=== PATIENT | male | born 1985 | race Caucasian/White ===

== ENCOUNTER 2016-10-17 20:08 | Inpatient (IN) | payer OTHER ==
[~2016-10-17] VITALS: Ht 167.6 cm; Wt 69.6 kg
--- NOTE | 2016-10-17 20:12 | NUR ---
PT BIB [facility] WITH C/O SOB.ACCORDING TO PARAMEDICS PT USED INHALER BUT STILL FEELS A LITTLE SOB.PT HAS PAIN IN LT ARM AND LEG BUT IT IS CHRONIC.ABLE TO SPEAK IN FULL SENTENCES, PT IS ITALIAN SPEAKING. PT CAME IN WITH IV TO LEFT AC 20G. PT IS ALERT, ORIENTED X 3, PT STATES HE IS ON A LIST FOR HEART TRANSPLANT. PT STATES HE IS ON BLOOD THINNERS BUT HE STATES HE HASNT TAKEN MEDS IN 2 DAYS DUE TO HE RAN OUT OF HIS MEDICATION.... MD AT BEDSIDE...
[2016-10-17] MEDS ORDERED: WARF1TAB2 (20:30)
[2016-10-17] MEDS ORDERED: ASPIRIN 325 MG TABLET PO ONE (20:30)
[2016-10-17] MEDS ORDERED: NITROGLYCERIN 0.4 MG/TAB BOTTLE SL ONE ×2 (20:30→20:32)
[2016-10-17] MEDS ORDERED: ASPIRIN 325 MG TABLET ONE (20:32)
[2016-10-17 20:41] LABS: BASOPHILS # (AUTO) 0.1 K/uL (0.0-8.0); BASOPHILS % (AUTO) 0.8 % (0.0-2.0); EOSINOPHILS % (AUTO) 0.3 % (0.0-7.0); HEMATOCRIT 44.3 % (40-50); HEMOGLOBIN 14.7 G/DL (14.0-18.0); LYMPHOCYTES % (AUTO) 42.6 % (20.5-51.5); MEAN CORPUSCULAR HEMOGLOBIN 29.5 UUG (27.0-31.0); MEAN CORPUSCULAR HGB CONC 33 g/dL (32.0-37.0); MEAN CORPUSCULAR VOLUME 88.5 FL (82.0-92.0); MONOCYTES # (AUTO) 0.7 K/UL (0.1-1.30); MONOCYTES % (AUTO) 7.4 % (0.0-11.0); NEUTROPHILS # (AUTO) 4.5 K/UL (1.8-8.9); NEUTROPHILS % (AUTO) 48.9 % (38.5-71.5); PLATELET COUNT (AUTO) 255 K/UL (150-450); WHITE BLOOD COUNT (AUTO) 9.3 K/UL (4.0-11.2)
[2016-10-17 20:52] LABS: CREATININE 1.3 mg/dL (0.6-1.3); POTASSIUM 3.5 mmol/L (3.5-5.1)
[2016-10-17 21:05] LABS: BILIRUBIN,DIRECT 0.1 mg/dL (0.0-0.2); BILIRUBIN,TOTAL 0.3 mg/dL (0.2-1.0); TOTAL PROTEIN, SERUM 7.7 g/dL (6.4-8.2)
[2016-10-17] MEDS ORDERED: ENOXAPARIN SODIUM 60 MG/0.6 ML DISP.SYRIN SQ ONE ×2 (21:15→21:21)
[2016-10-17] MEDS ORDERED: IV NORMAL SALINE 1000 ML BAG IV ONE (21:15)
--- NOTE | 2016-10-17 21:45 | NUR ---
RA PLACED IV LEAKING DURING CTA PROCEDURE, PROCEDURE STOPPED, NEW IV PLACED, RIGHT FA 18G, CT TO REPEAT SCAN...
[2016-10-17] MEDS ORDERED: NORMAL SALINE FLUSH 10 ML DISP.SYRIN ONE ×3 (21:51→22:14)
[2016-10-17] MEDS ORDERED: IOHEXOL 350 100 ML INFUS..BTL ONE ×2 (21:51→22:12)
[2016-10-17] MEDS ORDERED: IV NORMAL SALINE 250 ML IV ONE (21:51)
--- NOTE | 2016-10-17 22:30 | NUR ---
pt apparently has different alias, different name of Augie Partida provided...
[2016-10-18 00:39] LABS: *AMPHETAMINE, URINE NEGATIVE (NEGATIVE); *BARBITURATE, URINE NEGATIVE (NEGATIVE); *CANNABINOID, URINE NEGATIVE (NEGATIVE); *COCCAINE, URINE NEGATIVE (NEGATIVE); *OPIATE, URINE NEGATIVE (NEGATIVE); *PHENCYCLIDINE SCREEN,URINE NEGATIVE (NEGATIVE)
--- NOTE | 2016-10-18 01:03 | NUR ---
Called placed to [facility], waiting home economics extension worker back.
--- NOTE | 2016-10-18 01:23 | NUR ---
Called for bed, patient will be admitted to 219.
--- NOTE | 2016-10-18 02:49 | NUR ---
RECEIVED PATIENT FROM ED VIA GURNEY. GF AT BEDSIDE. NO ACUTE DISTRESS NOTED. PATIENT WAS PUT ON 3L O2 NC. USHERED TO ROOM. SAFETY INITIATED. TELE LEADS APPLIED. TELE SR AT 65. PATIENT IS ALERT AND ORIENTED X'S 3 BUT SOMETIME FORGETFUL. ABLE TO MAKE NEEDS KNOWN. BODY ASSESSMENT DONE. BELONGINGS LISTS COMPLETED. ADMITTING PROCEDURE FOLLOWED. CALL LIGHT WITHIN REACH. WILL REVIEW ORDERS AND WILL GIVE MEDS ORDERED. WILL CONTINUE TO MONITOR.
--- NOTE | 2016-10-18 02:52 | NUR ---
Pt. admitted to TELEMETRY , under care of Dr. Ji ARMENTA,Belongs List completed, pt is alert, oriented x 3, no resp distress noted or reported upon transfer assessment...
[2016-10-18 04:19] VITALS: BP 105/67
[2016-10-18] MEDS ORDERED: IV NS 1000 ML 1,000 ML IV PRN (04:49)
[2016-10-18] MEDS ORDERED: ONDANSETRON 4 MG/2 ML VIAL IV PRN (05:00)
[2016-10-18] MEDS ORDERED: ZOLPIDEM 5 MG TABLET PO PRN (05:00)
[2016-10-18] MEDS ORDERED: Z GUARD REMEDY PASTE 57 GM TUBE TOP PRN (05:00)
[2016-10-18] MEDS ORDERED: ACETAMINOPHEN 325 MG TABLET PO PRN (05:00)
[2016-10-18] MEDS ORDERED: ENOXAPARIN SODIUM 40 MG/0.4 ML DISP.SYRIN SQ SCH ×2 (05:00→21:00)
[2016-10-18] MEDS ORDERED: MORPHINE SULFATE 2 MG/1 ML DISP.SYRIN IV PRN (05:00)
[2016-10-18 05:35] LABS: BASOPHILS % (AUTO) 0.3 % (0.0-2.0); EOSINOPHILS # (AUTO) 0.1 K/uL (0.0-0.7); EOSINOPHILS % (AUTO) 1.5 % (0.0-7.0); HEMATOCRIT 44.1 % (40-50); HEMOGLOBIN 14.6 G/DL (14.0-18.0); LYMPHOCYTES # (AUTO) 2.5 K/UL (0.8-4.8); LYMPHOCYTES % (AUTO) 37.3 % (20.5-51.5); MEAN CORPUSCULAR HEMOGLOBIN 29.8 UUG (27.0-31.0); MEAN CORPUSCULAR HGB CONC 33 g/dL (32.0-37.0); MEAN CORPUSCULAR VOLUME 90.1 FL (82.0-92.0); MONOCYTES # (AUTO) 0.5 K/UL (0.1-1.30); MONOCYTES % (AUTO) 7.2 % (0.0-11.0); NEUTROPHILS # (AUTO) 3.7 K/UL (1.8-8.9); NEUTROPHILS % (AUTO) 53.7 % (38.5-71.5); PLATELET COUNT (AUTO) 242 K/UL (150-450); RED BLOOD CELL COUNT(AUTO) 4.89 MIL/UL (4.7-6.1); WHITE BLOOD COUNT (AUTO) 6.8 K/UL (4.0-11.2)
[2016-10-18 05:45] LABS: BILIRUBIN,TOTAL 0.2 mg/dL (0.2-1.0); MAGNESIUM 1.9 mg/dL (1.8-2.4); PHOSPHOROUS 5.7 mg/dL (2.5-4.9); TOTAL PROTEIN, SERUM 7.3 g/dL (6.4-8.2)
[2016-10-18] MEDS ORDERED: ACETAMINOPHEN 325 MG TABLET ONE (05:48)
[2016-10-18] MEDS ORDERED: ENOXAPARIN SODIUM 40 MG/0.4 ML DISP.SYRIN SQ ONE (05:48)
--- NOTE | 2016-10-18 07:29 | NUR ---
SAFETY AND COMFORT MAINTAINED T/O SHIFT. NO ACUTE DISTRESS NOTED. PATIENT IS ON O2 3L NC. TELE NSR AT 65. CALL LIGHT WITHIN REACH. ALL MEDS GIVEN ORDERED. ALL NEEDS MET.
--- NOTE | 2016-10-18 08:15 | NUR ---
RECEIVED PATIENT IN BED AWAKE ALERT AND ORIENTED DENIES PAIN OR DISCOMFORTS AT THIS TIME.REMAIN ON IVF ORDERED AND TELEMETRY IN PROGRESS ORDERED.DUE MEDICATIONS GIVEN AND TOLERATED WELL NOT IN DISTRESS AT THIS TIME.
[2016-10-18] MEDS ORDERED: ASPIRIN EC 81 MG TABLET.DR PO SCH (09:00)
[2016-10-18 12:00] VITALS: BP 111/70
--- NOTE | 2016-10-18 13:41 | NUR ---
RESTING ION BED WITH HIS SIGNIFICANT OTHER AT HIS BEDSIDE WITH NO SHORTNESS OF BREATH AT THIS TIME IVF REMAINS IN PROGRESS ORDERED.
--- NOTE | 2016-10-18 14:30 | NUR ---
PATIENT COMPLAINING OF PAIN ON THE IV SITE ON HIS LEFT FOREARM CHECKED WITH NO REDNESS OR SWELLING SO REMOVED AND RESTARTED TO HIS LEFT FOREARM WITH GAUGE 20 AND IVF CONTINUED ORDERED.NOT IN DISTRESS AT THIS TIME.
[2016-10-18 16:00] VITALS: BP 104/57
[2016-10-18] MEDS ORDERED: ATOR20TA PO (16:06)
[2016-10-18] MEDS ORDERED: ACET325T53 PO (16:06)
--- NOTE | 2016-10-18 16:24 | NUR ---
NEW ORDER NOTED TO DISCHARGE PATIENT HOME TODAY NOTED AWAITING FOR DR LEWIS TO COMPLETE THE DISCHARGE PAPERS.PATIENT AND HIS SPOUSE BRUNO AT THE BEDSIDE AWARE AND SHE STATED THAT WHEN THE PAPAER WORK IS COMPLETED THEN SHE WILL TAKE HIM HOME VIA A [facility].PATIENT IS CURRENTLY ON O2 SO TURNED OFF AND WILL RECHECK THE O2 LEVEL IN ABOUT 30 MINUTES.PATIENT INSTRUCTED THAT UNTIL I RETURN TO CHECK HIS O2 SAT IF HE FEELS SHORT OF BREATH TO CALL ME RIGHT AWAY AND HE AND HIS SPOUSE EXPRESSED UNDERSTANDING.
[2016-10-18] MEDS ORDERED: FOLI1TAB16 PO (16:43)
[2016-10-18] MEDS ORDERED: THIA100T13 PO (16:43)
--- NOTE | 2016-10-18 18:10 | NUR ---
PATIENT DISCHARGED PICKED UP BY HIS SPOUSE BRUNO IN SATISFACTORY CONDITION WITH DISCHARGE INSTRUCTIONS AND PRESCRIPTIONS AND SHE STATED CALLED THE [facility] TO TAKE THEM HOME AND PATIENT INSTRUCTED TO CALL HIS PRIMARY DOCTOR AND DOORPERSON OR [facility] FOR A FOLLOW UP APPOINTMENT WITHIN THE NEXT ONE TO TWO WEEKS AND HIM AND HIS SPOUSE EXPRESSED UNDERSTANDING.
[2016-10-18] MEDS ORDERED: ATORVASTATIN 20 MG TABLET PO SCH (21:00)
== END 2016-10-18 18:10 | disposition home or self-care (01) | DRG 203 ==
LOC: ER 20:09 → EDBD 20:09 → TELE 10-18 02:29 → MED 10-18 15:38
PROVIDERS: ADMIT Nurse Practitioner Acute Care; ATTEND Internal Medicine
DX: M94.0 Chondrocostal junction syndrome [Tietze] (principal); I08.1 Rheumatic disorders of both mitral and tricuspid valves; E78.5 Hyperlipidemia, unspecified; F10.129 Alcohol abuse with intoxication, unspecified; F29 Unspecified psychosis not due to a substance or known physiological condition; Z91.14 Patient's other noncompliance with medication regimen; Y90.6 Blood alcohol level of 120-199 mg/100 ml; Z59.0 Homelessness; Z79.01 Long term (current) use of anticoagulants; I51.9 Heart disease, unspecified; J45.909 Unspecified asthma, uncomplicated
CPT/HCPCS: 36415; 70030-TC; 70450; 71010; 71275; 80307; 83690; 83735; 84100; 85025; 85610; 93005; 93307; A4663; G0480; J1650; J3490; J7030; J7050; Q9967

== ENCOUNTER 2016-12-11 12:39 | Emergency (ER) | payer SELFPAY ==
[~2016-12-11] VITALS: Ht 175.3 cm; Wt 72.6 kg
[~2016-12-11 12:39] MED LIST: ACET325T53 PO; ATOR20TA PO; FOLI1TAB16 PO; THIA100T13 PO; WARF1TAB2
--- NOTE | 2016-12-11 15:32 | NUR ---
Patient discharged to home in stable conditon with family. Written and verbal after care instructions given. Patient verbalizes understanding of instructions. Stressed follow up or return to ER for worsening s/s. Pt's family translated [facility] for pt in Uzbek.
== END 2016-12-11 15:34 | disposition home or self-care (01) ==
LOC: ER 12:39
DX: S62.002A Unspecified fracture of navicular [scaphoid] bone of left wrist, initial encounter for closed fracture (principal); Z59.0 Homelessness; Z79.01 Long term (current) use of anticoagulants; E78.5 Hyperlipidemia, unspecified; J45.909 Unspecified asthma, uncomplicated; W18.30XA Fall on same level, unspecified, initial encounter; Y93.89 Activity, other specified; Y92.9 Unspecified place or not applicable; Y99.9 Unspecified external cause status
CPT/HCPCS: 73140; A4663